=== PATIENT | male | born 1965 | race Caucasian/White ===

== ENCOUNTER 2021-04-08 01:38 | Inpatient (IN) | payer MEDICAID, OTHER ==
[~2021-04-08] VITALS: Ht 167.6 cm; Wt 71.2 kg
[2021-04-08] MEDS ORDERED: PANTOPRAZOLE SODIUM 40 MG/VIAL IV STA (01:57)
[2021-04-08] MEDS ORDERED: ONDANSETRON HCL 4MG/2ML INJ IV STA (01:57)
[2021-04-08] MEDS ORDERED: SODIUM CHLORIDE 0.9% 1,000 ML IV ONE (02:00)
[2021-04-08 02:32] LABS: BASOPHILS % 0.3 % (0.0-2.0); EOSINOPHILS % 0.5 % (0.0-5.0); HEMATOCRIT. 32.4 % (42.0-52.0); MEAN CORPUSCULAR HEMOGLOBIN 29.8 pg (28.0-32.0); MEAN CORPUSCULAR VOLUME 87.6 fL (80.0-94.0); MEAN PLATELET VOLUME 8.5 fl (7.4-10.4); MONOCYTES % 6.7 % (2.0-8.0); NEUTROPHILS % 59.5 % (40.0-76.0); PLATELET 234 x1000/uL (130-400); RED CELL DISTRIBUTION WIDTH 13.6 % (11.6-14.6)
[2021-04-08 02:36] LABS: CHLORIDE 107 mEq/L (98-107)
[2021-04-08] MEDS ORDERED: NITROGLYCERIN 0.4MG TABLET SL SL PRN (06:45)
[2021-04-08] MEDS ORDERED: ACETAMINOPHEN 325MG TABLET PO PRN ×2 (06:45)
[2021-04-08] MEDS ORDERED: CLONIDINE 0.1MG TABLET PO PRN (06:45)
[2021-04-08] MEDS ORDERED: GUAIFENESIN 200MG/10ML SUGAR FREE UDC PO PRN (06:45)
[2021-04-08] MEDS ORDERED: DEXT 5%/LACTATED RINGERS 1,000 ML IV SCH (06:45)
[2021-04-08] MEDS ORDERED: ONDANSETRON HCL 4MG/2ML INJ IV PRN ×2 (06:45→17:00)
[2021-04-08] MEDS ORDERED: DOCUSATE SODIUM 100MG CAPSULE PO PRN (06:45)
[2021-04-08] MEDS ORDERED: ZOLPIDEM TARTRATE 5MG TABLET PO PRN (06:45)
[2021-04-08] MEDS ORDERED: MAGNESIUM/ALUMINUM HYDROXIDE/SIMETHICONE 30ML UDC PO PRN (06:45)
[2021-04-08] MEDS ORDERED: IPRATROPIUM/ALBUTEROL 0.5-3(2.5)MG/3ML NEB NEB PRN (06:45)
[2021-04-08] MEDS ORDERED: PANTOPRAZOLE 80 MG in SODIUM CHLORIDE 0.9% 100 ML IV SCH (07:00)
[2021-04-08 07:11] LABS: *AMPHETAMINES SCREEN URINE NEGATIVE (NEGATIVE); *BARBITURATES SCREEN URINE NEGATIVE (NEGATIVE); *BENZODIAZEPINES SCREEN URINE NEGATIVE (NEGATIVE); *COCAINE SCREEN URINE NEGATIVE (NEGATIVE); CANNABINOID URINE SCREEN NEGATIVE (NEGATIVE); PHENCYCLIDINE URINE SCREEN NEGATIVE (NEGATIVE)
[2021-04-08 07:12] LABS: METHADONE URINE SCREEN NEGATIVE (NEGATIVE); OPIATES URINE SCREEN NEGATIVE (NEGATIVE)
[2021-04-08 08:16] LABS: BASOPHILS % 0.2 % (0.0-2.0); HEMATOCRIT. 27.6 % (42.0-52.0); HEMOGLOBIN. 9.3 g/dL (14.0-18.0); LYMPHOCYTES % 12.5 % (20.0-50.0); MEAN CORPUSCULAR HEMOGLOBIN 30.4 pg (28.0-32.0); MEAN CORPUSCULAR VOLUME 89.8 fL (80.0-94.0); MEAN PLATELET VOLUME 8.2 fl (7.4-10.4); MONOCYTES % 4.3 % (2.0-8.0); PLATELET 203 x1000/uL (130-400); RED BLOOD CELL COUNT 3.07 mill/uL (4.7-6.1); RED CELL DISTRIBUTION WIDTH 13.6 % (11.6-14.6)
[2021-04-08 08:27] LABS: ETHANOL BLOOD < 10 mg/dL
[2021-04-08 08:28] LABS: TOTAL IRON BINDING CAPACITY 257 ug/dL (250-450)
[2021-04-08 08:29] LABS: LDL CHOLESTEROL 69 mg/dL (5-100)
[2021-04-08 08:30] VITALS: BP_SYST 102; BP_SYST 123; BP_DIAS 54; BP_DIAS 77
[2021-04-08 08:31] LABS: HDL CHOLESTEROL 19 mg/dL (40-59)
[2021-04-08 08:43] LABS: FOLIC ACID (FOLATE) SERUM 7.2 ng/mL (>5.38)
[2021-04-08] MEDS ORDERED: DEXTROSE 50% WATER 50ML SYRINGE IV PRN (10:00)
[2021-04-08 10:20] VITALS: BP 102/54
[2021-04-08 12:00] VITALS: BP 123/77
[2021-04-08] MEDS: BLOOD SUGAR DIAGNOSTIC STRIP TEST SCH ×3 (12:20→20:48)
[2021-04-08] MEDS: INSULIN LISPRO 100 UNITS/ML SUBCUT SCH ×3 (12:50→21:00)
[2021-04-08 13:19] LABS: HEMATOCRIT 28.4 % (42.0-52.0); HEMOGLOBIN 10.1 g/dL (14.0-18.0)
[2021-04-08 16:00] VITALS: BP 129/92
[2021-04-08] MEDS ORDERED: PROPOFOL 200MG/20ML VIAL IV ONE (16:38)
[2021-04-08] MEDS ORDERED: HYDROMORPHONE HCL/PF 2MG/ML CPJ IV PRN (17:00)
[2021-04-08] MEDS ORDERED: LABETALOL 5MG/ML SYR 20 MG/4 ML SYRINGE IV PRN (17:00)
[2021-04-08] MEDS ORDERED: MEPERIDINE HCL/PF 25MG/ML CPJ IV PRN (17:00)
[2021-04-08] MEDS ORDERED: METF-874 MT (17:56)
[2021-04-08] MEDS: SUCRALFATE 1G TABLET PO SCH ×2 (18:35→20:50)
[2021-04-08 20:00] VITALS: BP 127/71
[2021-04-08] MEDS: PANTOPRAZOLE SODIUM 40 MG/VIAL IV SCH (20:53)
[2021-04-08] MEDS: SODIUM CHL 0.45% + KCL 20MEQ/L 1,000 ML IV SCH (21:01)
[2021-04-08 23:55] LABS: HEMOGLOBIN 9.6 g/dL (14.0-18.0)
[2021-04-09] VITALS: BP 124/80
[2021-04-09 04:00] VITALS: BP 119/80
[2021-04-09 04:29] LABS: CHLORIDE 107 mEq/L (98-107)
[2021-04-09 04:42] LABS: BASOPHILS % 0.2 % (0.0-2.0); EOSINOPHILS % 0.3 % (0.0-5.0); HEMATOCRIT. 27.9 % (42.0-52.0); HEMOGLOBIN. 9.5 g/dL (14.0-18.0); LYMPHOCYTES % 34.6 % (20.0-50.0); MEAN CORPUSCULAR HEMOGLOBIN 29.6 pg (28.0-32.0); MEAN CORPUSCULAR VOLUME 86.7 fL (80.0-94.0); MEAN PLATELET VOLUME 8.2 fl (7.4-10.4); MONOCYTES % 6.5 % (2.0-8.0); NEUTROPHILS % 58.4 % (40.0-76.0); PLATELET 210 x1000/uL (130-400); RED BLOOD CELL COUNT 3.21 mill/uL (4.7-6.1); RED CELL DISTRIBUTION WIDTH 13.4 % (11.6-14.6)
[2021-04-09] MEDS: SUCRALFATE 1G TABLET PO SCH ×4 (06:32→21:09)
[2021-04-09] MEDS: SODIUM CHL 0.45% + KCL 20MEQ/L 1,000 ML IV SCH ×3 (06:33→17:10)
[2021-04-09] MEDS: BLOOD SUGAR DIAGNOSTIC STRIP TEST SCH ×4 (06:47→21:09)
[2021-04-09] MEDS: INSULIN LISPRO 100 UNITS/ML SUBCUT SCH ×4 (07:50→21:00)
[2021-04-09 08:00] VITALS: BP 132/75
[2021-04-09] MEDS: PANTOPRAZOLE SODIUM 40 MG/VIAL IV SCH ×2 (09:19→21:09)
[2021-04-09] MEDS: CYANOCOBALAMIN 1000MCG/ML VIAL IM SCH (09:19)
[2021-04-09] MEDS: FOLIC ACID 1MG TABLET PO SCH (09:20)
[2021-04-09 12:00] VITALS: BP 135/86
[2021-04-09 16:08] VITALS: BP 111/51
[2021-04-09 20:00] VITALS: BP 104/71
[2021-04-10 00:06] VITALS: BP 110/65
[2021-04-10] MEDS: SODIUM CHL 0.45% + KCL 20MEQ/L 1,000 ML IV SCH ×2 (00:43→10:11)
[2021-04-10 04:00] VITALS: BP 108/65
[2021-04-10] MEDS: SUCRALFATE 1G TABLET PO SCH (06:21)
[2021-04-10] MEDS: BLOOD SUGAR DIAGNOSTIC STRIP TEST SCH (06:22)
[2021-04-10] MEDS: INSULIN LISPRO 100 UNITS/ML SUBCUT SCH (07:50)
[2021-04-10 08:00] VITALS: BP 103/64
[2021-04-10] MEDS: CYANOCOBALAMIN 1000MCG/ML VIAL IM SCH (10:10)
[2021-04-10] MEDS: FOLIC ACID 1MG TABLET PO SCH (10:10)
[2021-04-10] MEDS: PANTOPRAZOLE SODIUM 40 MG/VIAL IV SCH (10:10)
[2021-04-10 11:42] VITALS: BP 120/78
[2021-04-10 12:00] VITALS: BP 120/78
== END 2021-04-10 12:38 | disposition home or self-care (01) | DRG 241 ==
LOC: ER 01:38 → 6WST 04:12 → ENRESERV 07:26
PROVIDERS: ADMIT Internal Medicine; ATTEND Internal Medicine
PROC: 0DJD8ZZ Inspection of Lower Intestinal Tract, Via Natural or Artificial Opening Endoscopic (ICD-10-PCS; principal; 2021-04-08)
PROC: 0DBE8ZZ Excision of Large Intestine, Via Natural or Artificial Opening Endoscopic (ICD-10-PCS; 2021-04-08)
PROC: 0DB78ZX Excision of Stomach, Pylorus, Via Natural or Artificial Opening Endoscopic, Diagnostic (ICD-10-PCS; 2021-04-08)
DX: K25.4 Chronic or unspecified gastric ulcer with hemorrhage (principal); E43 Unspecified severe protein-calorie malnutrition; K57.31 Diverticulosis of large intestine without perforation or abscess with bleeding; E83.51 Hypocalcemia; K63.5 Polyp of colon; Z20.822 Contact with and (suspected) exposure to COVID-19; K29.71 Gastritis, unspecified, with bleeding; Z68.25 Body mass index [BMI] 25.0-25.9, adult; Z79.4 Long term (current) use of insulin; E11.65 Type 2 diabetes mellitus with hyperglycemia; D62 Acute posthemorrhagic anemia
CPT/HCPCS: 36415; 71045; 80053; 80061; 80305; 80320; 82607; 82746; 82962; 83036; 83540; 83550; 83605; 83735; 84100; 85014; 85018; 85025; 86850; 86900; 87426; 88305; 88312; 88313; 93005; 93970; 99291; C9113; J1815; J2405; J2704; J3420; J3480; J7030; J7050; G0480